=== PATIENT | male | born 1985 | race Caucasian/White ===

== ENCOUNTER 2017-09-18 21:36 | Emergency (ER) | payer SELFPAY ==
[2017-09-18 21:49] VITALS: BP 131/88
--- NOTE | 2017-09-18 22:10 | EDPHY ---
H & P Stated Complaint: LSD ingestion Time Seen by Provider: 09/18/17 21:59 HPI/ROS: HPI The patient presents with altered mental status from a music concert. He is brought in by ambulance for agitation which was observed by other concert go worse. He was acting erratically, stumbling, appear to be intoxicated. He received Haldol 5 mg and Benadryl 25 mg prior to arrival in the emergency department. Per the paramedics this calmed his behavior significantly. The patient says that he did use LSD, total of 4 hits throughout the course of the night. He also drink alcohol, he says he had 2 drinks. Now, he states that he is feeling much better. He only feels tired. He denies any trauma. He does not have any body pain.. REVIEW OF SYSTEMS Constitutional: No fever, no chills. Eyes: No discharge. ENT: No sore throat. Cardiovascular: No chest pain, no palpitations. Respiratory: No cough, no shortness of breath. Gastrointestinal: No abdominal pain, no vomiting. Genitourinary: No hematuria. Musculoskeletal: No back pain. Skin: No rashes. Neurological: No headache. PMHx: Healthy Soc Hx: Visiting from [place], brother is staying with him PHYSICAL General Appearance: Alert, no distress Eyes: Pupils equal and round no pallor or injection ENT, Mouth: Mucous membranes moist Respiratory: There are no retractions, lungs are clear to auscultation Cardiovascular: Regular rate and rhythm Gastrointestinal: Abdomen is soft and non-tender, no masses, bowel sounds normal Neurological: A&O, moves all extremities Skin: Warm and dry, no rashes Musculoskeletal: Neck is supple non tender Extremities: symmetrical, full range of motion Psychiatric: Patient is oriented X 3, there is no agitation Source: Patient, EMS Exam Limitations: No limitations - Personal History Current Tetanus/Diphtheria Vaccine: Yes Current Tetanus Diphtheria and Acellular Pertussis (TDAP): Yes - Medical/Surgical History Hx Asthma: No Hx Chronic Respiratory Disease: No Hx Diabetes: No Hx Cardiac Disease: No Hx Renal Disease: No Hx Cirrhosis: No Hx Alcoholism: No Hx HIV/AIDS: No Hx Splenectomy or Spleen Trauma: No Other PMH: denies medical/surgical history - Social History Smoking Status: Current some day smoker Constitutional: Initial Vital Signs Temperature (C) 36.9 C 09/18/17 21:44 Heart Rate 113 H 09/18/17 21:44 Respiratory Rate 18 09/18/17 21:44 Blood Pressure 131/88 H 09/18/17 21:44 O2 Sat (%) 95 09/18/17 21:44 O2 Delivery Mode Room Air Allergies/Adverse Reactions: No Known Allergies Allergy (Unverified 09/18/17 21:49) Medical Decision Making Differential Diagnosis: 32-year-old healthy male presents with altered mental status at a music concert , admits to using LSD and alcohol. I suspect this is the cause of his symptoms. On arrival here, he is tachycardic, otherwise has a normal physical examination including neurologic evaluation. He has no external signs of trauma. In the emergency department, the patient was given 1 L of normal saline which improved his tachycardia. He continued to feel calm and was cooperative. Differential diagnoses considered include LSD intoxication, alcohol intoxication , less likely head injury. The patient was observed for several hours and continued to feel well. His brother came to pick him up and will take him home. 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 You should return to the emergency department if your worse in any way. Referrals: Patient,NotPresent [Unknown] - As per Instructions
== END 2017-09-19 00:50 | disposition home or self-care (01) ==
DX: F10.921 Alcohol use, unspecified with intoxication delirium (principal); F16.10 Hallucinogen abuse, uncomplicated; F17.200 Nicotine dependence, unspecified, uncomplicated